=== PATIENT | female | born 1970 | race African-American/Black ===

== ENCOUNTER 2019-07-29 10:05 | Emergency (ER) | payer SELFPAY ==
--- NOTE | 2019-07-29 11:03 | ER Document Report ---
ED Medical Screen (RME) - General Chief Complaint: Post Surgical Pain Stated Complaint: POST SURGICAL PAIN Time Seen by Provider: 07/29/19 10:58 Mode of Arrival: Wheelchair Information source: Patient Notes: 49-year-old female presented to ED for postsurgical pain to the left side. She states that she had surgery on a lung nodule on 225. She states she got up to fix breakfast after breakfast she felt like her heart was beating very fast and she has had pain in this area since then. She is alert oriented respirations regular nonlabored. She states the surgery was in [facility]. We will get a chest x-ray during the PET time and have her seen by another provider. Patient has some oxycodone with her we will give her 1 of her pills at this time so that she can be a little more comfortable. I have greeted and performed a rapid initial assessment of this patient. A comprehensive ED assessment and evaluation of the patient, analysis of test results and completion of medical decision making process will be conducted by an additional ED providers. Physical Exam - Vital signs Vitals: Temp Pulse Resp BP Pulse Ox 98.4 F 98 22 H 139/95 H 100 07/29/19 10:07/29/19 10:07/29/19 10:07/29/19 10:07/29/19 10:26 Course - Vital Signs Vital signs: Temp Pulse Resp BP Pulse Ox 98.4 F 98 22 H 139/95 H 100 07/29/19 10:07/29/19 10:07/29/19 10:07/29/19 10:07/29/19 10:26
[2019-07-29 11:59] LABS: ABSOLUTE BASOPHILS # (AUTO) 0.1 10^3/uL (0.0-0.2); ABSOLUTE EOSINOPHILS # (AUTO) 0.4 10^3/uL (0.0-0.6); ABSOLUTE LYMPHOCYTES (AUTO) 4.4 10^3/uL (0.5-4.7); ABSOLUTE NEUT (AUTO) 4.6 10^3/uL (1.7-8.2); BASOPHILS % (AUTO) 0.6 % (0-2); EOSINOPHILS % (AUTO) 3.8 % (0-6); HEMATOCRIT 38.1 % (36.0-47.0); HEMOGLOBIN 13.8 g/dL (12.0-15.5); LYMPHOCYTES % (AUTO) 41.8 % (13-45); MEAN CORPUSCULAR HEMOGLOBIN 30.1 pg (27.0-33.4); MEAN CORPUSCULAR HGB CONC 36.1 g/dL (32.0-36.0); MEAN CORPUSCULAR VOLUME 83 fl (80-97); MONOCYTES % (AUTO) 9.8 % (3-13); PLATELET COUNT 382 10^3/uL (150-450); RED BLOOD COUNT 4.58 10^6/uL (3.72-5.28); RED CELL DISTRIBUTION WIDTH 14.8 % (11.5-14.0); TOTAL CELLS COUNTED % (AUTO) 100 %; WHITE BLOOD COUNT 10.5 10^3/uL (4.0-10.5)
[2019-07-29 12:06] LABS: APPEARANCE,URINE CLEAR; BILIRUBIN,URINE NEGATIVE (NEGATIVE); COLOR,URINE STRAW; GLUCOSE, URINE NEGATIVE (NEGATIVE); KETONES,URINE NEGATIVE (NEGATIVE); PROTEIN,URINE NEGATIVE (NEGATIVE); URINE SPECIFIC GRAVITY 1.004; UROBILINOGEN,URINE NEGATIVE mg/dL (<2.0)
[2019-07-29 12:13] LABS: ALBUMIN 4.3 g/dL (3.5-5.0); ALKALINE PHOSPHATASE 89 U/L (38-126); ANION GAP 10 (5-19); ASPARTATE AMINO TRANSFERASE 20 U/L (14-36); BILIRUBIN,DIRECT 0.2 mg/dL (0.0-0.4); BILIRUBIN,TOTAL 0.4 mg/dL (0.2-1.3); BLOOD UREA NITROGEN 17 mg/dL (7-20); CALCIUM 9.8 mg/dL (8.4-10.2); CARBON DIOXIDE 26 mmol/L (22-30); CHLORIDE 104 mmol/L (98-107); GLUCOSE 75 mg/dL (75-110); POTASSIUM 4.5 mmol/L (3.6-5.0); TOTAL PROTEIN 7.7 g/dL (6.3-8.2)
--- NOTE | 2019-07-29 12:18 | RADIOLOGY REPORT (SQ) ---
EXAM DESCRIPTION: CHEST 2 VIEWS COMPLETED DATE/TIME: 07/29/2019 12:01 pm REASON FOR STUDY: left chest pain due to surgery COMPARISON: None. EXAM PARAMETERS: NUMBER OF VIEWS: Two views. TECHNIQUE: PA and lateral views of the chest were obtained.. RADIATION DOSE: NA LIMITATIONS: none FINDINGS: LUNGS AND PLEURA: Biapical bullae and surgical staple line in the superior left hemithorax . There is a nodular opacity adjacent to the staple line that measures 14 x 12 mm. There is no acut e consolidation, pleural effusion or pneumothorax MEDIASTINUM AND HILAR STRUCTURES: No mediastinal or hilar contour abnormality. HEART AND VASCULAR STRUCTURES: The cardiac silhouette and pulmonary vasculature are within normal ortiz its. BONES: No acute findings. HARDWARE: None in the chest. OTHER: No other finding. IMPRESSION: 14 x 12 mm nodular opacity adjacent to the staple line in the superior left hemithorax. TECHNICAL DOCUMENTATION: JOB ID: [id number] 2010 [email or web address]- All Rights Reserved Reading location - IP/workstation name: [email or web address]
--- NOTE | 2019-07-29 13:24 | EKG REPORT ---
SEVERITY:- ABNORMAL ECG - SINUS RHYTHM LEFT VENTRICULAR HYPERTROPHY : Confirmed by: Ajith Jara MD 29-Jul-2019 13:24:22
--- NOTE | 2019-07-29 13:51 | ER Document Report ---
ED General - General Chief Complaint: Post Surgical Pain Stated Complaint: POST SURGICAL PAIN Time Seen by Provider: 07/29/19 10:58 Mode of Arrival: Wheelchair TRAVEL OUTSIDE OF THE [place]. IN LAST 30 DAYS: No - HPI Notes: Patient is a 49-year-old female with history of hypothyroidism and lung nodule who presents complaining of pain over the biopsy took place from her back into her lung on 07/21 in [place]. She is seeing an oncologist there Dr. Cha and does have a follow-up scheduled. Patient states that she has been having increased pain to the area so she came here for evaluation. Patient states it does hurt to take a deep breath and when she pushes in that area. Pain is all in the left side where the biopsy took place. She was noted to have a 14 x 12 mm nodule to the area. She otherwise is able to eat and drink without difficulty. She is urinating normally and having normal bowel movements. Denies any prolonged immobilization, distance travel, hormone use, cigarette smoking, or previous DVT/PE. Denies any headache, fever, neck pain, URI, sore throat, palpitations, syncope, cough, wheeze, dyspnea, abdominal pain, nausea/vomiting/diarrhea, urinary retention, dysuria, hematuria, or rash. - Related Data Allergies/Adverse Reactions: ivory soap Allergy (Uncoded 07/29/19 11:01) oranges Allergy (Uncoded 07/29/19 11:01) Home Medications: pain medication. thyroid. trazadone Past Medical History - General Information source: Patient - Social History Smoking Status: Former Smoker Chew tobacco use (# tins/day): No Frequency of alcohol use: daily Drug Abuse: Marijuana Family History: Reviewed & Not Pertinent Patient has suicidal ideation: No Patient has homicidal ideation: No Review of Systems - Review of Systems -: Yes All other systems reviewed and negative Physical Exam - Vital signs Vitals: Temp Pulse Resp BP Pulse Ox 98.4 F 98 22 H 139/95 H 100 07/29/19 10:26 07/29/19 10:26 07/29/19 10:26 07/29/19 10:07/29/19 10:26 - Notes Notes: PHYSICAL EXAMINATION: GENERAL: Well-appearing, well-nourished and in no acute distress. HEAD: Atraumatic, normocephalic. EYES: Pupils equal round and reactive to light, extraocular movements intact, sclera anicteric, conjunctiva are normal. ENT: Nares patent and without discharge. oropharynx clear without exudates. No tonsilar hypertrophy or erythema. Moist mucous membranes. NECK: Normal range of motion, supple without lymphadenopathy Chest: + reproducible tenderness to palpation of the left lateral chest area, but mostly to the area of the procedure. LUNGS: Breath sounds clear to auscultation bilaterally and equal. No wheezes rales or rhonchi. HEART: Regular rate and rhythm without murmurs, rubs, gallops. ABDOMEN: Soft, nontender, nondistended abdomen. No guarding, no rebound. Normal bowel sounds present. No CVA tenderness bilaterally. Musculoskeletal: FROM to passive/active. Strength 5+/5. Trey neg. No asymmetry to LE's. Extremities: No cyanosis, clubbing, or edema b/l. Peripheral pulses 2+. Capillary refill less than 3 seconds. NEUROLOGICAL: Normal speech, normal gait. PSYCH: Normal mood, normal affect. SKIN: procedure site noted left chest wall. there is no erythema, warmth, purulence, streaks, induration. + tenderness. Course - Re-evaluation Re-evalutation: 07/29/19 13:[address] Cha's office and left VM. 07/29/19 14:03 Pt did have a recent procedure performed and distance travel with the pleuritic pain complaint. Reviewed with Dr. Gramajo and we will obtain a CTA of the chest. 07/29/19 16:06 Patient is an afebrile, well-hydrated 49-year-old female who presents to the ED with reproducible left lateral chest pain where the biopsy took place. Vitals are acceptable without any significant tachycardia, tachypnea, or hypoxia. PE is otherwise unremarkable aside from the reproducible lateral chest wall tenderness. Patient is nontoxic-appearing and is tolerating p.o. without any difficulties. CBC, CMP, EKG, chest x-ray, CTA chest are all unremarkable for any acute pathology. Patient does not have any dyspnea or shortness of breath. Patient's presentation and symptomatology creates low suspicion for ACS, PE, pneumothorax, pericarditis, dissection, respiratory compromise, severe dehydration, sepsis, meningitis, or other systemic emergent condition at this time. Patient is aware that this condition can change from initial presentation and she needs to monitor symptoms closely and seek medical attention for any acute changes. Recommend conservative measures for symptoms. Recheck with your PCM in 2-3 days. Keep consult with oncologist. Return to the ED with any worsening/concerning symptoms otherwise as reviewed in discharge. Patient is in agreement. Dr. Gramajo in agreement with dispo/plan. - Vital Signs Vital signs: Temp Pulse Resp BP Pulse Ox 98.4 F 98 22 H 139/95 H 100 07/29/19 10:26 07/29/19 10:26 07/29/19 10:26 07/29/19 10:26 07/29/19 10:26 - Laboratory Result Diagrams: 07/29/19 11:32 07/29/19 11:32 Laboratory results interpreted by me: 07/29/19 11:32 MCHC 36.1 H RDW 14.8 H Discharge - Discharge Clinical Impression: Chest wall pain Condition: Stable Disposition: HOME, SELF-CARE Additional Instructions: Rest, Ice, cool compress Tylenol/ibuprofen as needed Light stretches daily Wash with soap/water and keep skin clean F/u with your PCP in 2-3 days for a recheck Call your oncologist tomorrow to discuss with them and keep scheduled appointment Return to the ED with any worsening symptoms and/or development of fever, headache, chest pain, palpitations, syncope, shortness of breath, trouble breathing, abdominal pain, n/v/d, muscle weakness/paralysis, numbness/tingling, swelling, redness, or other worsening symptoms that are concerning to you. Prescriptions: Ibuprofen [Motrin 800 mg Tablet] 800 mg PO Q8H PRN #15 tab PRN Reason: Forms: Elevated Blood Pressure Referrals: GABRIEL JIN MD [ACTIVE STAFF] - Follow up as needed
--- NOTE | 2019-07-29 15:06 | RADIOLOGY REPORT (SQ) ---
EXAM DESCRIPTION: CTA CHEST COMPLETED DATE/TIME: 07/29/2019 2:35 pm REASON FOR STUDY: recent left lung biopsy of nodule, Lt CP COMPARISON: PA and lateral views of the chest from 07/29/2019. TECHNIQUE: CT scan of the chest performed using helical scanning technique with dynamic intravenous contrast injection. Images reviewed with lung, soft tissue and bone windows. Reconstructed coronal and sagittal MPR images reviewed. Additional 3 dimensional post-processing performed to develop Maximal Intensity Projection images ([place] P). All images stored on PACS. All CT scanners at this facility use dose modulation, iterative reconstruction, and/or weight based d osing when appropriate to reduce radiation dose to as low as reasonably achievable (ALARA). [facility]: Dose Right [facility]: CareDose [facility]: Dose Right [facility]: Teradose 4D [facility]: Hiptype CONTRAST TYPE AND DOSE: Contrast/concentration: Isovue 350.00 mg/ml; Total Contrast Delivered: 50.0 ml; Total Saline Delivered: 46.3 ml Contrast bolus optimized for the pulmonary arteries. RENAL FUNCTION: GFR > 60. RADIATION DOSE: CT Rad equipment meets quality standard of care and radiation dose reduction techniq ues were employed. CTDIvol: 9.9 - 14.3 mGy. DLP: 500 mGy-cm. LIMITATIONS: None. FINDINGS: LUNGS AND PLEURA: Apical christoph. The patient is status post sublobar resection with a meta llic staple line in the left upper lobe. The soft tissue adjacent to the staple line is nonspecific and could represent atelectasis, fibrosis or a post- operative sequela. There are strands of subsegm ental atelectasis in the lower lobes. There is no acute consolidation, pleural effusion or pneumotho rax AORTA AND GRE[employer] VESSELS: Evaluation is limited as the contrast bolus was optimized for evaluation of the pulmonary arteries. There is no thoracic aortic dissection. HEART: The left ventricle is enlarged. There is no pericardial effusion. PULMONARY ARTERIES: There is no pulmonary embolus. HILAR AND MEDIASTINAL STRUCTURES: No adenopathy. HARDWARE: None in the chest. UPPER ABDOMEN: No acute findings. THYROID AND OTHER SOFT TISSUES: Subcutaneous emphysema in the lateral left hemithorax P BONES: No acute or significant finding. 3D MIPS: Confirm above findings. OTHER: No other finding. IMPRESSION: 1. Status post sublobar resection with a metallic staple line in the left upper lobe. T he soft tissue adjacent to the staple line is nonspecific and could represent atelectasis, fibrosis o r a post- operative sequela. 2. Foci of subcutaneous emphysema in the lateral left hemithorax. COMMENT: Quality ID # [id number]: Final reports with documentation of one or more dose reduction techniques (e.g., Automated exposure control, adjustment of the mA and/or kV according to patient size, use of iterative reconstruction technique) TECHNICAL DOCUMENTATION: JOB ID: [id number] 2010 [employer]- All Rights Reserved Reading location - IP/workstation name: [email or web address]
[2019-07-29] MEDS ORDERED: HYDROCODONE/ACETAMINOPHEN 5-325 MG (6 TAB/ER DISP) PO PRN (16:09)
[2019-07-29 16:32] VITALS: BP 136/86
== END 2019-07-29 16:33 | disposition home or self-care (01) ==
LOC: ER 10:05
DX: R07.89 Other chest pain (principal); R07.1 Chest pain on breathing; R91.1 Solitary pulmonary nodule; Z98.890 Other specified postprocedural states; F12.10 Cannabis abuse, uncomplicated; E03.9 Hypothyroidism, unspecified; Z79.899 Other long term (current) drug therapy; Z88.3 Allergy status to other anti-infective agents; Z91.018 Allergy to other foods; Z87.891 Personal history of nicotine dependence
CPT/HCPCS: 36415; 71046; 71275; 80053; 81001; 85025; 93005; 93010; 99284

== ENCOUNTER → 2020-04-12 | Outpatient (CLI) | payer OTHER ==
[2020-04-12 12:09] LABS: ALBUMIN 4.1 g/dL (3.5-5.0); ALKALINE PHOSPHATASE 95 U/L (38-126); ANION GAP 9 (5-19); ASPARTATE AMINO TRANSFERASE 19 U/L (14-36); BILIRUBIN,TOTAL 0.7 mg/dL (0.2-1.3); BLOOD UREA NITROGEN 8 mg/dL (7-20); CALCIUM 9.6 mg/dL (8.4-10.2); CARBON DIOXIDE 26 mmol/L (22-30); CHLORIDE 105 mmol/L (98-107); GLUCOSE 79 mg/dL (75-110); POTASSIUM 4.5 mmol/L (3.6-5.0); TOTAL PROTEIN 7.1 g/dL (6.3-8.2); TRIGLYCERIDES 85 mg/dL (<150)
[2020-04-12 12:20] LABS: DIRECT LDL 106 mg/dL (<100)
== END ==
LOC: CCC 10:11
PROVIDERS: ATTEND Internal Medicine
DX: E03.9 Hypothyroidism, unspecified (principal)
CPT/HCPCS: 36415; 80053; 80061; 83036; 84443

== ENCOUNTER 2020-04-26 15:46 | Emergency (ER) | payer SELFPAY ==
[2020-04-26] MEDS ORDERED: HYDROCODONE/ACETAMINOPHEN 5-325 MG TABLET PO ONE (16:44)
--- NOTE | 2020-04-26 16:44 | ER Document Report ---
ED Medical Screen (RME) - General Chief Complaint: Rib Pain Stated Complaint: LEFT RIB/LUNG PAIN Time Seen by Provider: 04/26/20 16:19 [facility]: [facility] [Primary [facility] Provider] - Follow up as needed TRAVEL OUTSIDE OF THE [place]. IN LAST 30 DAYS: No - HPI Notes: 04/26/20 16:26 49-year-old female with a history of hypothyroidism who had a lung nodule jonas rgically removed in June 2019 in [place] presents to the emergency room today for complaints of left lung pain that started 3 days ago along with having left-sided chest pain as well 3 days ago, pain has been constant. Patient states that she has had a cold from her grandson, she is unable to smell anything but she is able to taste. Has not been tested for Covid. Patient denies any radiation of chest pain. Denies any fevers but does report chills. Has not tried any kgwl-cfl-jlaplfl medications. Patient does not have a revit drafter and has not followed up with a revit drafter after she had her lung nodule removed. Denies any shortness of breath. I have greeted and performed a rapid initial assessment of this patient. A comprehensive ED assessment and evaluation of the patient, analysis of test results and completion of the medical decision making process will be conducted by additional ED providers. PHYSICAL EXAMINATION: GENERAL: Well-appearing, well-nourished and in no acute distress. NECK: Normal range of motion CV: s1, s2 regular LUNGS: No respiratory distress - Related Data Allergies/Adverse Reactions: ivory soap Allergy (Uncoded 07/29/19 11:01) oranges Allergy (Uncoded 07/29/19 11:01) Past Medical History Pulmonary Medical History: Reports: Hx Asthma Past Surgical History: Reports: Hx Hysterectomy, Hx Orthopedic Surgery Physical Exam - Vital signs Vitals: Temp Pulse Resp BP Pulse Ox 99.0 F 60 20 105/91 H 96 04/26/20 15:56 04/26/20 15:56 04/26/20 15:56 04/26/20 15:56 04/26/20 15:56 Course - Vital Signs Vital signs: Temp Pulse Resp BP Pulse Ox 99.0 F 60 20 105/91 H 96 04/26/20 15:56 04/26/20 15:56 04/26/20 15:56 04/26/20 15:56 04/26/20 15:56 Doctor's Discharge - Discharge Referrals: [facility] [Primary Care Provider] - Follow up as needed
[2020-04-26 17:05] LABS: ABSOLUTE EOSINOPHILS # (AUTO) 0.3 10^3/uL (0.0-0.6); ABSOLUTE MONOCYTES (AUTO) 0.8 10^3/uL (0.1-1.4); EOSINOPHILS % (AUTO) 2.6 % (0-6); TOTAL CELLS COUNTED % (AUTO) 100 %
[2020-04-26 17:08] LABS: ABSOLUTE BASOPHILS # (AUTO) 0.2 10^3/uL (0.0-0.2); ABSOLUTE LYMPHOCYTES (AUTO) 4.7 10^3/uL (0.5-4.7); ABSOLUTE NEUT (AUTO) 6.3 10^3/uL (1.7-8.2); BASOPHILS % (AUTO) 1.9 % (0-2); HEMATOCRIT 35.5 % (36.0-47.0); HEMOGLOBIN 12.3 g/dL (12.0-15.5); LYMPHOCYTES % (AUTO) 37.9 % (13-45); MEAN CORPUSCULAR HEMOGLOBIN 28.5 pg (27.0-33.4); MEAN CORPUSCULAR HGB CONC 34.7 g/dL (32.0-36.0); MEAN CORPUSCULAR VOLUME 82 fl (80-97); MONOCYTES % (AUTO) 6.6 % (3-13); PLATELET COUNT 336 10^3/uL (150-450); RED BLOOD COUNT 4.31 10^6/uL (3.72-5.28); RED CELL DISTRIBUTION WIDTH 14.1 % (11.5-14.0); WHITE BLOOD COUNT 12.3 10^3/uL (4.0-10.5)
[2020-04-26 17:22] LABS: ALBUMIN 3.9 g/dL (3.5-5.0); ALKALINE PHOSPHATASE 97 U/L (38-126); ASPARTATE AMINO TRANSFERASE 22 U/L (14-36); BILIRUBIN,DIRECT 0.1 mg/dL (0.0-0.4); BILIRUBIN,TOTAL 0.5 mg/dL (0.2-1.3); BLOOD UREA NITROGEN 9 mg/dL (7-20); CALCIUM 9.1 mg/dL (8.4-10.2); CARBON DIOXIDE 26 mmol/L (22-30); CHLORIDE 106 mmol/L (98-107); GLUCOSE 94 mg/dL (75-110); POTASSIUM 4.1 mmol/L (3.6-5.0); TOTAL PROTEIN 6.8 g/dL (6.3-8.2)
[2020-04-26 17:23] LABS: ANION GAP 4 (5-19)
--- NOTE | 2020-04-26 17:28 | RADIOLOGY REPORT (SQ) ---
EXAM DESCRIPTION: CHEST SINGLE VIEW IMAGES COMPLETED DATE/TIME: 04/26/2020 5:14 pm REASON FOR STUDY: left lung pain, s/p lung nodule removed 06/2019 COMPARISON: 08/18/2019 EXAM PARAMETERS: NUMBER OF VIEWS: One view. TECHNIQUE: Single frontal radiographic view of the chest acquired. RADIATION DOSE: NA LIMITATIONS: None. FINDINGS: LUNGS AND PLEURA: There is no recurrent pulmonary nodule. There is the suggestion of a pn eumatocoele in the left mid lung laterally. No acute infiltrate or effusion. MEDIASTINUM AND HILAR STRUCTURES: No masses. Contour normal. HEART AND VASCULAR STRUCTURES: Heart normal in size. Normal vasculature. BONES: No acute findings. HARDWARE: None in the chest. OTHER: No other significant finding. IMPRESSION: NO ACUTE RADIOGRAPHIC FINDING IN THE CHEST. TECHNICAL DOCUMENTATION: JOB ID: [id number] 2010 [employer]- All Rights Reserved Reading location - IP/workstation name: [email or web address]
--- NOTE | 2020-04-26 18:43 | EKG REPORT ---
SEVERITY:- ABNORMAL ECG - SINUS RHYTHM CONSIDER LEFT VENTRICULAR HYPERTROPHY : Confirmed by: Jeffrey Wilson MD 26-Apr-2020 18:43:28
--- NOTE | 2020-04-26 20:08 | ER Document Report ---
ED General - General Chief Complaint: Rib Pain Stated Complaint: LEFT RIB/LUNG PAIN Time Seen by Provider: 04/26/20 16:19 [facility]: [facility] [NO LOCAL MD] - Follow up as needed Mode of Arrival: Ambulatory Information source: Patient TRAVEL OUTSIDE OF THE [place] IN LAST 30 DAYS: No - Related Data Allergies/Adverse Reactions: ivory soap Allergy (Uncoded 04/26/20 17:11) oranges Allergy (Uncoded 04/26/20 17:11) Home Medications: THYROID Past Medical History - Social History Smoking Status: Former Smoker Chew tobacco use (# tins/day): No Frequency of alcohol use: Occasional Drug Abuse: Marijuana Family History: Reviewed & Not Pertinent Patient has homicidal ideation: No Pulmonary Medical History: Reports: Hx Asthma Past Surgical History: Reports: Hx Hysterectomy, Hx Orthopedic Surgery Physical Exam - Vital signs Vitals: Temp Pulse Resp BP Pulse Ox 99.0 F 60 20 105/91 H 96 04/26/20 15:56 04/26/20 15:56 04/26/20 15:56 04/26/20 15:56 04/26/20 15:56 Course - Vital Signs Vital signs: Temp Pulse Resp BP Pulse Ox 99.0 F 60 20 126/87 H 100 04/26/20 15:56 04/26/20 15:56 04/26/20 17:02 04/26/20 17:01 04/26/20 17:02 - Laboratory Result Diagrams: 04/26/20 16:53 04/26/20 16:53 Laboratory results interpreted by me: 04/26/20 04/26/20 16:53 16:53 WBC 12.3 H Hct 35.5 L RDW 14.1 H Sodium 135.7 L Anion Gap 4 L Discharge - Discharge Clinical Impression: Pleuritic chest pain Condition: Good Disposition: HOME, SELF-CARE Instructions: Pleurisy ([facility]) Additional Instructions: Prescriptions for a Medrol Dosepak and naproxen have been sent to your pharmacy for you. Please pick these up and take them according to label directions. [facility] can [facility] at the number in your discharge packet to arrange a follow-up appointment if your clinic cannot see you. You should have a follow-up in 2 to 3 days. Return to the emergency department if your symptoms worsen or if any other concerning symptoms develop. Prescriptions: Naproxen 500 mg PO BID PRN #14 tablet PRN Reason: Pain Referrals: [facility] [NO LOCAL MD] - Follow up as needed
[2020-04-26 20:35] VITALS: BP 128/98
== END 2020-04-26 20:53 | disposition home or self-care (01) ==
LOC: ER 15:46
DX: R07.81 Pleurodynia (principal); D72.829 Elevated white blood cell count, unspecified; J45.909 Unspecified asthma, uncomplicated; F12.10 Cannabis abuse, uncomplicated; Z90.2 Acquired absence of lung [part of]; Z85.118 Personal history of other malignant neoplasm of bronchus and lung; Z87.891 Personal history of nicotine dependence; Z79.899 Other long term (current) drug therapy; Z91.018 Allergy to other foods; Z88.3 Allergy status to other anti-infective agents; Z20.828 Contact with and (suspected) exposure to other viral communicable diseases
CPT/HCPCS: 93005; 99285; 36415; 85025; 87635; 80053; 84484; 71045; 93010; C9803